=== PATIENT | female | born 1990 | race Two or more races ===

== ENCOUNTER 2024-06-07 19:55 | Emergency (ER) | payer SELFPAY ==
--- NOTE | ~2024-06-07 | XR_ITS ---
EXAMINATION: XR HAND, LEFT CLINICAL INFORMATION: Hand pain. Site not specified. COMPARISON: None available. TECHNIQUE: PA, lateral, and oblique views of the left hand. FINDINGS: The bones and soft tissues are normal. No fracture. Alignment is anatomic. Joint spaces are maintained. No erosions or soft tissue calcifications. XR/XR hand LT min 3V IMPRESSION: Normal left hand. Electronically signed by: Andrew Pelayo MD 06/07/2024 09:33 PM EDT RP
[2024-06-07 20:24] VITALS: BP 135/66; PULSE 60; RESP 19; TEMP 37; O2SAT 99; BMI 30.3
--- NOTE | 2024-06-07 20:24 | ED_ITS ---
HPI - General Adult General Chief complaint: Extremity Injury, Upper Stated complaint: LT hand inj/stitches removal Source: patient Mode of arrival: ambulatory Limitations: no limitations History of Present Illness ED Provider: Chreri Ruiz PA-C HPI narrative: Patient is a 33 year old assigned female at presenting to the emergency department with left hand pain. Patient states 10 days ago she cut her left hand on a plate at work, was seen at an urgent care, and had stitches placed. Patient states that she was told to get her stitches out after 10 days but today she started to have pain below the stitched area - in her palm. Patient denies any discharge from the area or any redness. Patient denies any dizziness, lightheadedness, abdominal pain, nausea, vomiting, fever, chills, blurry vision, double vision, loss of vision, chest pain, difficulty breathing, shortness of breath, back pain, night sweats, pain with urination, increased urinary frequency, increased urinary urgency, blood in her urine or stool, syncope or a near syncopal episode, bowel incontinence, bladder incontinence, or any other complaints at this time. Relieving factors: none Exacerbating factors: none Related Data Allergies Allergy/AdvReac Type Severity Reaction Status Date / Time lactose Allergy Stomach Verified 06/07/24 20:27 Upset Review of Systems Constitutional: Constitutional: Reports no additional constitutional complaints, Denies chills, Denies fever(s) and Denies night sweats Eyes: Eyes: Reports no additional eye complaints, Denies blurry vision, Denies change in vision, Denies diplopia, Denies eye discharge, Denies loss of vision and Denies eye pain ENT: Denies dizziness Cardiovascular: Cardiovascular: Reports no additional cardiovascular complaints, Denies chest pain, Denies lightheadedness, Denies Loss of Consciousness and Denies dyspnea Respiratory: Respiratory: Reports no additional respiratory complaints and Denies dyspnea Gastrointestinal: Gastrointestinal: Reports no additional gastrointestinal complaints, Denies abdominal pain, Denies melena, Denies hematochezia, Denies change in bowel habits and Denies change in stool character Genitourinary: Genitourinary: Denies hematuria, Denies urinary frequency, Denies dysuria, Denies urinary incontinence, Denies urinary hesitancy and Denies urinary urgency Musculoskeletal: Musculoskeletal: Reports no additional musculoskeletal complaints, Denies numbness and Denies tingling Comments: left hand pain Neurologic: Denies dizziness, Denies loss of vision, Denies numbness and Denies tingling Psychiatric: Psychiatric: Reports no additional psychiatric complaints Endocrine: Endocrine: Reports no additional endocrine complaints Hematologic/Lymphatic: Hematologic/Lymphatic: Reports no additional hemat ologic/lymphatic complaints Allergic/Immunologic: Allergic/Immunologic: Reports no additional allergic/immunologic complaints PMFSH Past Medical History Attestation statement: The following information was validated with the patient. Source: old records reviewed and nursing notes reviewed Social History Social History Advance Directives: No Advance Directives Information Provided: No Do you have a plan to hurt others: No Plan Physical Exam ED Vital Signs: BMI result Body Mass Index 30.3 Const General: cooperative, no acute distress, alert and awake Nutritional Appearance: well nourished Orientation/consciousness: patient oriented x3 Limitations: no limitations HENMT Head: Yes normal to inspection and Yes atraumatic Ears: hearing grossly normal bilaterally and external ears normal General nose exam: Normal external nose present, no nasal discharge noted and no epistaxis Face and sinus: Yes normal facial exam, No abrasion and No laceration Mouth: Normal oral and palatal mucosa present, no drooling and no muffled voice Eyes General: appearance normal, both eyes and all related structures Periorbital: periorbital findings normal Eyelids: Yes eyelids normal Conjunctivae: conjunctivae normal Pupils: Equal, round and reactive pupils present EOM: EOMs intact bilaterally Neck Neck: Yes normal visual inspection, Yes full ROM and Yes no lymphadenopathy Chest Chest palpation & inspection: normal inspection of the chest Resp Effort & Inspection: normal respiratory effort and able to speak in complete sentences GI Inspection: Yes normal to inspection Neuro General: patient oriented x3 and moves all extremities Cranial nerves: Yes Equal, round and reactive pupils present Cognition (Neuro): normal cognition Extrem Other: sutures present in the palmar aspect of the left hand at the base of the 2nd digit General: Yes full ROM and Yes capillary refill normal Psych Appearance: grossly normal Mental Status: mental status grossly normal Affect: normal affect Attitude: cooperative Thought process: Normal thought process present Thought content: Normal thought content present Insight: Good insight present (Psych) Course Course Course Narrative: RME performed by Cherri Ruiz, PA-C. Patient is a 33 year old assigned female at presenting to the emergency department with left hand pain. Patient states 10 days ago she cut her left hand on a plate at work, was seen at an urgent care, and had stitches placed. Patient states that she was told to get her stitches out after 10 days but today she started to have pain below the stitched area - in her palm. Patient denies any discharge from the area or any redness. Detailed physical exam and review of systems are deferred to the sales representative printing supplies. Imaging ordered. Patient placed back in the waiting room pending room availability and results. Medical Decision Making Medical Decision Making MDM Narrative: Patient is a 33 year old assigned female at with no reported medical history presenting to the emergency department today with left hand pain. Patient's limited physical exam performed in triage showed sutures with a well healed wound but was otherwise unremarkable. Patient's left hand x-ray showed no acute process. Patient left the department without completing treatment. Patient left the department before myself or any of the other emergency department clinicians could explain to or review with the patient; physical exam findings, test results, need or lack there of for additional testing, need or lack there of for a procedure to be performed, need or lack there of for hospital admission / transfer, need or lack there of for prescription medication, treatment options, or a treatment plan. Differential Diagnosis Differential Diagnoses: The differential diagnosis associated with the presentation includes Hand sprain Hand pain Tendon injury Suture removal Admission/Observation Consideration of admission/observation: Escalation of care including admission/observation considered Patient would have been admitted to the hospital had she completed her work up and it had any findings where hospital admission was appropriate, her clinical presentation warranted hospital admission, had myself or any other emergency aging department supervisor had the ability to discuss need or lack there of for hospital admission, and the patient hadn't left the department without completing treatment. Independent Interpretation I performed an independent interpretation of an: Plain X-Ray Interpretation: My interpretation is in agreement with the radiologist's impression of this imaging study. EXAMINATION: XR HAND, LEFT CLINICAL INFORMATION: Hand pain. Site not specified. COMPARISON: None available. TECHNIQUE: PA, lateral, and oblique views of the left hand. FINDINGS: The bones and soft tissues are normal. No fracture. Alignment is anatomic. Joint spaces are maintained. No erosions or soft tissue calcifications. XR/XR hand LT min 3V IMPRESSION: Normal left hand. Electronically signed by: Andrew Pelayo MD 06/07/2024 09:33 PM EDT RP Dictated By: Andrew Pelayo MD Signed By: Electronically signed by Andrew Pelayo MD 06/07/24 9488 Radiology Impression Discussion of test interpretation with radiology: I have reviewed the radiologist's reading. Discharge Plan Discharge Clinical Impression: Hand pain, Visit for suture removal Patient Disposition: Left W/O Completing Treatment Discharge Date/Time: 06/08/24 05:41
== END 2024-06-08 05:41 | disposition left against medical advice (07) ==
LOC: HO.ED 06-08 05:12
PROVIDERS: Emergency Provider Emergency Medicine
DX: M79.642 Pain in left hand (principal); Z48.02 Encounter for removal of sutures
CPT/HCPCS: 73130; 99281; 99283

== ENCOUNTER 2024-07-28 14:21 | Outpatient (REF) | payer MEDICAID, OTHER, SELFPAY ==
[2024-07-28 14:55] LABS: MANUAL DIFF FLAG NO
[2024-07-28 15:15] LABS: Basophils Percent Auto 0.7 % (0-2); Eosinophils Absolute Auto 0.1 X10*3/uL (0.0-0.4); Eosinophils Percent Auto 1.8 % (0-4); Hematocrit 33.9 % (37.0-47.0); Hemoglobin 10.4 g/dl (12.0-16.0); Imm Gran Abs Auto 0.02 X10*3/uL (0.00-0.03); Imm Gran Pct Auto 0.4 % (0.0-0.4); Lymphocytes Percent Auto 34.9 % (20-40); Mean Corpuscular HGB Conc 30.7 g/dl (31.0-35.0); Mean Corpuscular Hemoglobin 23.3 pg (27.0-33.0); Mean Corpuscular Volume 75.8 fL (80.0-98.0); Mean Platelet Volume 9.7 fL (9.4-12.3); Monocytes Absolute Auto 0.5 X10*3/uL (0.1-1.2); Monocytes Percent Auto 8.2 % (2-11); Neutrophils Absolute Auto 3.1 x10*3/uL (2.0-8.3); Platelet Count 372 X10*3/uL (160-400); Red Blood Count 4.47 X10*6/uL (4.20-5.50); Red Cell Distribution Width 15.5 % (11.0-16.0); White Blood Count 5.7 X10*3/uL (4.8-10.8)
[2024-07-28 15:31] LABS: Estimated Average Glucose 128 mg/dL; Hemoglobin A1C 115.4696 umol/L; Hemoglobin A1c % 6.1 % (<6.0); Total Hemoglobin (HGBA1C) 2705.1896 umol/L
[2024-07-28 16:06] LABS: Alanine Aminotransferase 26 U/L (0-31); Alkaline Phosphatase 84 U/L (39-117); Anion Gap 11 (12-20); Aspartate Amino Transferase 27 U/L (5-31); Bilirubin Total 0.2 mg/dL (0.0-1.0); Blood Urea Nitrogen 11 mg/dL (9-16); Calcium 9.4 mg/dL (8.4-10.2); Carbon Dioxide 26 mmol/L (22-29); Chloride 103 mmol/L (96-108); Cholesterol 227 mg/dL (<200); Estimated Glomerular Filt Rate > 60; Glucose Random 86 mg/dL (60-115); HDL Cholesterol 50 mg/dL (>40); LDL Cholesterol Calculated 152 mg/dL (<100); Potassium 3.9 mmol/L (3.3-5.1); Sodium 136 mmol/L (135-145); Total Protein 7.5 g/dL (6.5-8.0); Triglycerides 125 mg/dL (<150)
[2024-07-28 16:12] LABS: Thyroid Stimulating Hormone 0.85 uIU/mL (0.32-4.0)
[2024-07-29 08:12] LABS: Hepatitis A Antibody IgG REACTIVE (Nonreactive); Hepatitis A Antibody IgM 0.27 Index (0-0.79); ~Hepatitis A Antibody IgG 9.73 S/CO (0.00-0.99); ~Hepatitis A Antibody IgM Nonreactive (Nonreactive)
[2024-07-29 08:33] LABS: HBc Num1 0.03 S/CO (0.00-0.79); HBsAGNum1 0.47 S/CO (0.00-0.99); Hepatitis B Core Antibody Nonreactive (Nonreactive); Hepatitis B Surface Antigen Negative (Negative)
[2024-07-30 01:29] LABS: Hepatitis B Surface Ab Qnt <5 mIU/mL (> OR = 10)
[2024-07-30 06:23] LABS: Mumps Virus IgG Antibody >300.00 AU/mL; Varicella IgG Antibody 3.66 S/CO
== END 2024-07-28 14:22 | disposition home or self-care (01) ==
LOC: HO.US 14:21
PROVIDERS: PCP Nurse Practitioner; Visit Provider Nurse Practitioner
DX: R10.13 Epigastric pain (principal); Z13.1 Encounter for screening for diabetes mellitus; Z13.220 Encounter for screening for lipoid disorders; K59.00 Constipation, unspecified
CPT/HCPCS: 36415; 80053; 80061; 83036; 84443; 85025; 86317; 86704; 86708; 86709; 86735; 86765; 86787; 87340

== ENCOUNTER 2024-08-24 09:10 | Emergency (ER) | payer MEDICAID, OTHER, SELFPAY ==
[2024-08-24 09:14] VITALS: BP 127/71; PULSE 72; RESP 16; O2SAT 100; BMI 29.9
[2024-08-24 09:39] LABS: MANUAL DIFF FLAG NO
[2024-08-24 09:43] LABS: Appearance Urine Hazy; Basophils Percent Auto 0.5 % (0-2); Color Urine RED; Eosinophils Absolute Auto 0.2 X10*3/uL (0.0-0.4); Eosinophils Percent Auto 3.6 % (0-4); Glucose Urine UA Negative (Negative); Hematocrit 35.1 % (37.0-47.0); Hemoglobin 10.9 g/dl (12.0-16.0); Imm Gran Abs Auto 0.02 X10*3/uL (0.00-0.03); Imm Gran Pct Auto 0.3 % (0.0-0.4); Leukocyte Esterase Urine Negative (Negative); Lymphocytes Percent Auto 32.2 % (20-40); Mean Corpuscular HGB Conc 31.1 g/dl (31.0-35.0); Mean Corpuscular Hemoglobin 23.2 pg (27.0-33.0); Mean Corpuscular Volume 74.8 fL (80.0-98.0); Mean Platelet Volume 9.4 fL (9.4-12.3); Monocytes Absolute Auto 0.3 X10*3/uL (0.1-1.2); Neutrophils Absolute Auto 3.5 x10*3/uL (2.0-8.3); Neutrophils Percent Auto 58.4 % (45-73); Nitrite Urine Negative (Negative); PH 6.5 (5.0-9.0); Platelet Count 322 X10*3/uL (160-400); Red Blood Count 4.69 X10*6/uL (4.20-5.50); Red Cell Distribution Width 15.9 % (11.0-16.0); Specific Gravity - Urine >= 1.030 (1.005-1.025); UMIC TRIGGER UACC YES; Urine Blood Large (3+) (Negative); Urine Ketones Negative (Negative); Urine Protein 30 (1+) mg/dL (Neg-Trace); White Blood Count 6.1 X10*3/uL (4.8-10.8)
[2024-08-24 09:49] LABS: Bacteria Urine Trace (None Seen); Hyaline Casts Urine 0-2 /LPF (0-2); RBC Urine >20 /HPF (0-2); Squamous Epithelial Cell Urine 0-2 /HPF (0-2); UACC Culture Trigger YES
[2024-08-24 09:54] LABS: Anion Gap 11 (12-20); Blood Urea Nitrogen 12 mg/dL (9-16); Calcium 8.9 mg/dL (8.4-10.2); Carbon Dioxide 27 mmol/L (22-29); Chloride 105 mmol/L (96-108); Creatinine Clr Calc Pharmacy 95.1; Estimated Glomerular Filt Rate > 60; Glucose Random 133 mg/dL (60-115); Sodium 139 mmol/L (135-145)
[2024-08-24 12:29] LABS: HCG Quantitative < 2 mIU/mL
--- NOTE | 2024-08-24 12:42 | ED_ITS ---
HPI - Female Genitourinary General Chief complaint: Urogenital-Female Stated complaint: Abd pain Time Seen by Provider: 08/24/24 11:30 Source: patient and RN notes reviewed Mode of arrival: ambulatory Limitations: language barrier History of Present Illness ED Provider: Gloria Fisher PA-C HPI Narrative: This is a 61-[place]-Bulgarian speaking female, with no known medical problems, who presents emergency department with complaints of pelvic pain, and cramping for the last 3 days. Patient states that she had a routine OBGYN appointment 6 days ago, to check her IUD and routine screening. Patient states that on Saturday she started her normal menses, and states that since yesterday she has had worsening pelvic pain and cramping. She denies any dysuria, hematuria, or urgency. She does report some urinary frequency, otherwise no other urinary symptoms She does state that she is sexually active with her partner, denies any new partners. No chance of STI. She states that she has had her normal menses flow, no changes. Denies history of ovarian cysts. No abdominal surgeries. No other complaints or concerns at this time. MD elicited complaint: vaginal bleeding and pelvic pain Pertinent past history: IUD Onset (ago): day(s) Location of symptoms: suprapubic Severity: moderate Female Urogenital Radiation: Suprapubic Quality of pain: cramping Consistency: constant Vaginal discharge: none Vaginal bleeding: moderate Urinary symptoms: Frequency Exacerbating factors: menstrual period Relieving factors: none Associated symptoms: abdominal pain Treatment prior to arrival: none Sexual activity: Yes Patient : No Related Data Allergies Allergy/AdvReac Type Severity Reaction Status Date / Time lactose Allergy Stomach Verified 08/24/24 09:17 Upset Review of Systems 2 Review of Systems: Yes all other systems are reviewed and are negative Constitutional: Constitutional: Reports as per [facility] Social History Social History Advance Directives: No Advance Directives Information Provided: Yes Patient : No Physical Exam 2 Vital Signs: Vital Signs: Last Vital Signs Temp 98.4 F 08/24/24 15:16 Pulse 72 08/24/24 15:16 Resp 16 08/24/24 15:16 BP 127/71 08/24/24 15:16 Pulse Ox 100 08/24/24 15:16 O2 Del Method Room Air 08/24/24 15:16 BMI result Body Mass Index 29.9 Const: General: cooperative, comfortable and no acute distress O rientation/consciousness: patient oriented x3 Limitations: no limitations HEENT: Head: Yes normal to inspection, Yes normocephalic and Yes atraumatic Ears: hearing grossly normal bilaterally General nose exam: Normal external nose present Face and sinus: Yes normal facial exam Mouth: Normal oral and palatal mucosa present, oropharynx normal and moist mucous membranes Throat: Yes posterior oropharynx normal Eyes: General: appearance normal, both eyes and all related structures E yelids: Yes eyelids normal Conjunctivae: conjunctivae normal Sclerae: s clerae normal Pupils: Equal, round and reactive pupils present EOM: EOMs intact bilaterally Neck: Neck: Yes normal visual inspection, Yes full ROM and Yes no lymphadenopathy Lymphatic: no lymphadenopathy noted Chest: Chest palpation & inspection: normal inspection of the chest Resp: Effort & Inspection: normal respiratory effort and able to speak in complete sentences Auscultation: clear to auscultation bilaterally, no crackles, no rales, no rhonchi and no wheezes Cardio: Rate: regular rate Rhythm: regular rhythm Heart sounds: S1 normal heart sound present and S2 normal heart sound present GI: Other: Abdomen is soft, with mild tenderness palpation in the suprapubic region, no tenderness overlying McBurney's point. No rebound guarding Inspection: Yes normal to inspection Skin: General skin exam: no rashes or lesions noted Trauma: no lacerations or abrasions Wounds: no wounds Neuro: General: patient oriented x3 and moves all extremities Cranial nerves: Yes Equal, round and reactive pupils present Extrem: General: Yes normal to inspection Right upper extremity: normal to inspection Left upper extremity: normal to inspection Right lower extremity: normal to inspection Left lower extremity: normal to inspection Course Reevaluation(s) Reevaluation #1: it desktop support technician came to do ultrasound however patient reports that she needs to leave to garbage pick up man her child. I discussed with patient that it is unclear what is causing her to have lower pelvic pain, and she needs to be further worked up however patient refuses. I discussed that if she chooses to leave, this is against medical advice. I discussed with patient that we are unsure what is happening therefore consequences can occur including but not limited to serious injury and . She understands these consequences and is able to make these medical decisions for her. Patient understands the risks, patient signed against medical advice. Time: 15:12 Medications Administered Discontinued Medications Generic Name Dose Route Start Last Admin Trade Name Sandra PRN Reason Stop Dose Admin Ibuprofen 600 mg 08/24/24 13:30 08/24/24 13:36 Ibuprofen 600 Mg Tablet PO 08/24/24 13:31 600 mg ONCE ONE Administration Medical Decision Making Medical Decision Making [facility] Narrative: 33-year-old female who presents emergency department with complaints of lower abdominal pain/suprapubic pain for the last 3 days. She started her menses on Saturday. On arrival, vital signs within normal limits. She is speaking in full sentences under no acute distress. She does have tenderness palpation in the suprapubic region. Labs were obtained, she has no leukocytosis, stable H&H, she is not , urine does have blood, however does not appear to be infected. Given suprapubic pain, ultrasound was ordered to rule out any pelvic pathology. Differential diagnoses include acute cystitis, ovarian torsion, , ectopic , uterine fibroids, dysmenorrhea. Differential Diagnosis Differential Diagnoses: The differential diagnosis associated with the presentation includes See above Lab Data [facility] Lab Attestation statement: I reviewed the patient's lab results. See course comment 08/24/24 09:30 08/24/24 09:30 Labs: Lab Results 08/24/24 Range/Units 09:30 WBC 6.1 (4.8-10.8) X10*3/uL RBC 4.69 (4.20-5.50) X10*6/uL Hgb 10.9 L (12.0-16.0) g/dl Hct 35.1 L (37.0-47.0) % MCV 74.8 L (80.0-98.0) fL MCH 23.2 L (27.0-33.0) pg MCHC 31.1 (31.0-35.0) g/dl RDW 15.9 (11.0-16.0) % Plt Count 322 (160-400) X10*3/uL MPV 9.4 (9.4-12.3) fL Immature Gran % (Auto) 0.3 (0.0-0.4) % Neut % (Auto) 58.4 (45-73) % Lymph % (Auto) 32.2 (20-40) % [place] % (Auto) 5.0 (2-11) % Eos % (Auto) 3.6 (0-4) % Baso % (Auto) 0.5 (0-2) % Lymph # (Auto) 2.0 (1.2-4.9) X10*3/uL [place] # (Auto) 0.3 (0.1-1.2) X10*3/uL Eos # (Auto) 0.2 (0.0-0.4) X10*3/uL Baso # (Auto) 0.0 (0.0-0.2) X10*3/uL Abs Immat Gran (auto) 0.02 (0.00-0.03) X10*3/uL Absolute Neuts (auto) 3.5 (2.0-8.3) x10*3/uL Absolute Nucleated RBC 0.000 (0.0-0.012) X10*3/uL Nucleated RBC % (auto) 0.0 (0.0-0.2) /100WBC Sodium 139 (135-145) mmol/L Potassium 4.0 (3.3-5.1) mmol/L Chloride 105 (96-108) mmol/L Carbon Dioxide 27 (22-29) mmol/L Anion Gap 11 L (12-20) BUN 12 (9-16) mg/dL Creatinine 0.84 (0.5-1.4) mg/dL Estim Creat Clear Calc 95.1 Estimated GFR > 60 Random Glucose 133 H (60-115) mg/dL Calcium 8.9 (8.4-10.2) mg/dL Beta HCG, Quant < 2 mIU/mL Urine Color RED Urine Appearance Hazy Urine pH 6.5 (5.0-9.0) Ur Specific [place] >= 1.030 H (1.005-1.025) Urine Protein 30 (1+) H (Neg-Trace) mg/dL Urine Glucose (UA) Negative (Negative) mg/dL Urine Ketones Negative (Negative) mg/dL Urine Blood Large (3+) H (Negative) Urine Nitrite Negative (Negative) Ur Leukocyte Esterase Negative (Negative) Urine RBC >20 H (0-2) /HPF Urine WBC 11-20 H (0-5) /HPF Ur Squamous Epith Cells 0-2 (0-2) /HPF Urine Bacteria Trace (None Seen) Hyaline Casts 0-2 (0-2) /LPF Radiology Impression Discussion of test interpretation with radiology: I have reviewed the radiologist's reading. External Record Review External record reviewed: Inpatient record, Office record, Outpatient record, Prior outpatient labs, Prior outpatient radiology, Primary care record and Outside ED record Discharge Plan Discharge Clinical Impression: Pelvic pain Patient Disposition: Left Against Medical Advice Instructions: Pelvic Pain (ED) Additional Instructions: You were seen in the emergency department due to pelvic pain. We had ordered an ultrasound however you he did to leave prior to this evaluation. You were signing against medical advice, it is unclear what is causing your symptoms, therefore, we had ordered advanced testing however you could not stay for this to be performed. Signing against medical advice can have serious consequences including but not limited to severe injury including . Please follow-up with your primary care physician. Stand Alone Forms: Work/School Release Interventions: ED Discharge Assessment Last Done: 08/24/24 15:16 Discharge Date/Time: 08/24/24 15:17 Print Language: Guyanese
[2024-08-24] MEDS: Ibuprofen 600 MG TABLET PO (13:36)
[2024-08-24 15:16] VITALS: BP 127/71; PULSE 72; RESP 16; TEMP 36.9; O2SAT 100
== END 2024-08-24 15:17 | disposition left against medical advice (07) ==
PROVIDERS: Physician Assistant Medical; Emergency Provider Emergency Medicine
DX: R10.2 Pelvic and perineal pain (principal); R35.0 Frequency of micturition
CPT/HCPCS: 36415; 80048; 81001; 84702; 85025; 87086; 99283